=== PATIENT | female | born 1990 | race Caucasian/White ===

== ENCOUNTER → 2017-05-09 12:35 | Outpatient (CLI) | payer MEDICAID, SELFPAY ==
[2017-05-09 12:59] LABS: Basophils % 0.3 % (0.1-2.0); Eosinophils # 0.2 K/mm3 (0.0-0.4); Eosinophils % 2.3 % (0.1-12.0); Hematocrit 47.5 % (37.0-47.0); Hemoglobin 15.8 g/dL (12.2-16.2); Lymphocytes # 2.8 K/mm3 (0.7-4.5); Mean Corpuscular HGB Conc 33.3 g/dL (31.8-35.4); Mean Corpuscular Volume 90.1 fl (81-99); Mean Platelet Volume 6.9 fl (7.4-10.4); Monocytes # 0.4 K/mm3 (0.1-1.0); Monocytes % 3.8 % (1.7-9.3); Neutrophils # 6.5 K/mm3 (1.8-7.8); Neutrophils % 65.6 % (37.0-80.0); Platelet Count 416 K/mm3 (142-424); Red Blood Count 5.27 M/mm3 (4.20-5.40); Red Cell Distribution Width 12.3 % (11.5-17.5); White Blood Count 9.9 K/mm3 (4.8-10.8)
[2017-05-09 13:12] LABS: Alanine Aminotransferase 35 U/L (12-78); Albumin Level 4.2 gm/dL (3.4-5.0); Albumin/Globulin Ratio 1.2 (1.1-1.8); Alkaline Phosphatase 108 U/L (46-116); Amylase 38 U/L (25-125); Aspartate Amino Transferase 14 U/L (15-37); Bilirubin,Total 0.3 mg/dL (0.2-1.0); Blood Urea Nitrogen 9 mg/dL (7-18); Carbon Dioxide 24 mmol/L (21.0-32.0); Chloride 106 mmol/L (98-107); Creatinine,Serum 0.74 mg/dL (0.55-1.02); Estimated Glomerular Filt Rate 96 ml/min (>60); GFR (African American) 116 ML/MIN (>60); Globulin 3.4 gm/dl (1.3-3.2); Glucose 90 mg/dL (74-106); Lipase 128 u/L (73-393); Sodium 141 mmol/L (136-145); Total Protein,Serum 7.6 gm/dL (6.4-8.2)
== END ==
PROVIDERS: Visit Provider Internal Medicine Adolescent Medicine
DX: R10.11 Right upper quadrant pain (principal)
CPT/HCPCS: 36415; 80053; 82150; 83690; 85025

== ENCOUNTER → 2017-05-14 08:52 | Outpatient (CLI) | payer MEDICAID, SELFPAY ==
--- NOTE | 2017-05-14 08:56 | US_ITS ---
US abdomen limited: HISTORY: Right upper quadrant pain with nausea vomiting and diarrhea ITS.REASON: RUQ PAIN ORDERING PHYSICIAN: Kevin Fregoso MD PATIENT AGE: 27 years COMPARISON: None FINDINGS: PANCREAS: Unremarkable. No obvious mass or abnormal fluid collection. No ductal dilatation LIVER: No focal liver lesions demonstrated. Homogeneous echogenicity. No intrahepatic biliary ductal dilatation evident RIGHT KIDNEY: Unremarkable. Normal size and echogenicity. No hydronephrosis GALLBLADDER: No gallstones, gallbladder wall thickening, pericholecystic fluid, or biliary dilatation. There is a minimal amount of gallbladder sludge. IMPRESSION: Minimal gallbladder sludge otherwise negative right upper quadrant ultrasound
== END ==
PROVIDERS: Family Provider Internal Medicine Adolescent Medicine; PCP Internal Medicine Adolescent Medicine; Visit Provider Internal Medicine Adolescent Medicine
DX: R10.11 Right upper quadrant pain (principal)
CPT/HCPCS: 76705

== ENCOUNTER → 2017-05-18 10:14 | Outpatient (CLI) | payer MEDICAID, SELFPAY ==
--- NOTE | 2017-05-18 10:17 | NM_ITS ---
NM hepatobiliary w pharm HISTORY: Right upper quadrant pain ITS.REASON: SLUDGE IN GALLBLADDER ORDERING PHYSICIAN: Kevin Fregoso MD PATIENT AGE: 27 years COMPARISON: None DOSE: 8.38 MCI TC Choletec Fatty meal Ensure FINDINGS: Homogeneous activity is present within the hepatic parenchyma. Activity is present in the gallbladder by 10 minutes. Activity is present in the small bowel by 30 minutes. The gallbladder ejection fraction is calculated to be 58% The patient did report pain with the fatty meal. IMPRESSION: Unremarkable hepatobiliary scan and gallbladder ejection fraction. No evidence of common or cystic duct obstruction with normal gallbladder ejection fraction
== END ==
PROVIDERS: Family Provider Internal Medicine Adolescent Medicine; PCP Internal Medicine Adolescent Medicine; Visit Provider Internal Medicine Adolescent Medicine
DX: K82.8 Other specified diseases of gallbladder (principal)
CPT/HCPCS: 78227; A9537

== ENCOUNTER → 2017-06-01 08:58 | Outpatient (CLI) | payer MEDICAID, SELFPAY ==
--- NOTE | 2017-06-01 09:03 | FL_ITS ---
FL barium swallow COMPARISON: None HISTORY: Sensation of something sticking in throat in the cervical region TECHNIQUE: Fluoroscopy while swallowing barium FINDINGS: The swallowing function is normal. Spot films of the cervical esophagus show no abnormality. There is no degenerative change of the cervical spine. There Is normal esophageal motility. There is a small sliding hiatal hernia without gastroesophageal reflux noted. IMPRESSION: Small sliding hiatal hernia otherwise normal study, the fluoroscopic time is 1 minute 35 seconds
== END ==
PROVIDERS: Family Provider Internal Medicine Adolescent Medicine; PCP Internal Medicine Adolescent Medicine; Visit Provider Surgery
DX: R13.10 Dysphagia, unspecified (principal)
CPT/HCPCS: 74220

== ENCOUNTER → 2017-06-13 10:25 | Outpatient (CLI) | payer MEDICAID, SELFPAY ==
[2017-06-13 11:05] LABS: Basophils # 0.1 K/mm3 (0-0.2); Basophils % 0.6 % (0.1-2.0); Eosinophils # 0.2 K/mm3 (0.0-0.4); Eosinophils % 2.8 % (0.1-12.0); Hematocrit 47.9 % (37.0-47.0); Hemoglobin 16.1 g/dL (12.2-16.2); Lymphocytes # 2.1 K/mm3 (0.7-4.5); Lymphocytes % 24.6 K/mm3 (10-50); Mean Corpuscular HGB Conc 33.6 g/dL (31.8-35.4); Mean Corpuscular Hemoglobin 30.3 pg (27.0-31.2); Mean Corpuscular Volume 90.3 fl (81-99); Mean Platelet Volume 8.1 fl (7.4-10.4); Monocytes # 0.4 K/mm3 (0.1-1.0); Monocytes % 4.9 % (1.7-9.3); Neutrophils # 5.7 K/mm3 (1.8-7.8); Platelet Count 385 K/mm3 (142-424); Red Cell Distribution Width 12.5 % (11.5-17.5); White Blood Count 8.5 K/mm3 (4.8-10.8)
[2017-06-13 11:06] LABS: Urine Pregnancy, HCG Qual. Negative (Negative)
[2017-06-13 12:12] LABS: Alanine Aminotransferase 47 U/L (12-78); Albumin Level 4.2 gm/dL (3.4-5.0); Albumin/Globulin Ratio 1.4 (1.1-1.8); Alkaline Phosphatase 115 U/L (46-116); Anion Gap 17.4 mEq/L (5-15); Aspartate Amino Transferase 23 U/L (15-37); Bilirubin,Total 0.7 mg/dL (0.2-1.0); Blood Urea Nitrogen 12 mg/dL (7-18); Calcium 9.7 mg/dL (8.5-10.1); Carbon Dioxide 25 mmol/L (21.0-32.0); Chloride 105 mmol/L (98-107); Creatinine,Serum 0.77 mg/dL (0.55-1.02); Estimated Glomerular Filt Rate 91 ml/min (>60); GFR (African American) 111 ML/MIN (>60); Globulin 3.1 gm/dl (1.3-3.2); Glucose 87 mg/dL (74-106); Potassium 4.4 mmoL/L (3.5-5.1); Sodium 143 mmol/L (136-145); Total Protein,Serum 7.3 gm/dL (6.4-8.2)
== END ==
PROVIDERS: Visit Provider Surgery
DX: Z01.818 Encounter for other preprocedural examination (principal); K82.8 Other specified diseases of gallbladder; R13.14 Dysphagia, pharyngoesophageal phase
CPT/HCPCS: 36415; 80053; 81025; 85025

== ENCOUNTER 2017-11-15 16:00 | Outpatient (RCR) | payer MEDICAID, SELFPAY ==
--- NOTE | 2017-10-24 14:00 | HMH.PTOPEV ---
PT Outpatient Evaluation Rehab PT Outpatient Evaluation Start: 10/24/17 13:48 Freq: Status: Active Protocol: Document 10/24/17 13:48 MARGOTH (Rec: 10/24/17 14:00 PHORTREY [id number]) Electronically Signed By Stefano Ramos, PT 10/24/17 13:48 Outpatient Therapy Subjective History Subjective History Pt is 27 yof who presents with c/o right mid-back pain x ~ 4 mos with insidious onset of symptoms. She reports sharp, deep pain most of the time and worse with twisting or sleeping. She reports muscle relaxers she was prescribed intially did not help, but after 3-4 days her symptoms eased. However, her symptoms soon returned and meds no longer helped her pain. She has hx of lap CCY perfomed ~ 4 mos ago. Chief Complaint Pain Symptom Type Sharp Symptoms Relieved By Nothing Symptoms Aggravated By Bending/Stooping Twisting Prior Functional Limitations None Current Functional Limitations Driving Sleeping Symptom Description Constant but Variable Level of pain today (0-10) 3 Pain scale - at its worst (0-10) 6 Cervical Eval Palpation Cervical Muscles R Upper Trapezius L Upper Trapezius Cervical/Thoracic Palpation Findings Tenderness Posture Head/C-Spine Posture Sitting Position Neutral Position Head/C-Spine Posture Standing Position Neutral Position Flexibility Deficits Upper Trapezius Muscle Length (R) Mild Tightness (L) Mild Tightness Levaetor Scapulae Muscle Length (R) Mild Tightness (L) Mild Tightness Passive Joint Mobility Cervical PIVM WNL: R OA L OA R AA L AA R C2/3 L C2/3 R C3/4 L C3/4 R C4/5 L C4/5 R C5/6 L C5/6 R C6/7 L C6/7 R C7/T1 L C7/T1 MMT Bilateral
== END 2017-11-15 16:01 | disposition home or self-care (01) ==
LOC: PT 16:00
PROVIDERS: Family Provider Internal Medicine Adolescent Medicine; PCP Internal Medicine Adolescent Medicine; Visit Provider Internal Medicine Adolescent Medicine
DX: M54.6 Pain in thoracic spine (principal)
CPT/HCPCS: 97010; 97014; 97110; 97163; G0283

== ENCOUNTER → 2018-04-04 14:36 | Outpatient (CLI) | payer MEDICAID, SELFPAY ==
[2018-04-04 15:12] LABS: Basophils # 0.1 K/mm3 (0-0.2); Basophils % 1.4 % (0.1-2.0); Eosinophils # 0.2 K/mm3 (0.0-0.4); Eosinophils % 1.8 % (0.1-12.0); Hematocrit 46.2 % (37.0-47.0); Hemoglobin 15.4 g/dL (12.2-16.2); Lymphocytes # 2.7 K/mm3 (0.7-4.5); Lymphocytes % 26.3 % (10-50); Mean Corpuscular HGB Conc 33.3 g/dL (31.8-35.4); Mean Corpuscular Hemoglobin 30.9 pg (27.0-31.2); Mean Corpuscular Volume 92.7 fl (81-99); Mean Platelet Volume 6.9 fl (7.4-10.4); Monocytes # 0.5 K/mm3 (0.1-1.0); Monocytes % 5.3 % (1.7-9.3); Neutrophils # 6.6 K/mm3 (1.8-7.8); Neutrophils % 65.3 % (37.0-80.0); Platelet Count 397 K/mm3 (142-424); Red Blood Count 4.98 M/mm3 (4.20-5.40); Red Cell Distribution Width 13.3 % (11.5-17.5); White Blood Count 10.1 K/mm3 (4.8-10.8)
[2018-04-04 15:52] LABS: HCG Qualitative, Serum Negative (Negative)
== END ==
PROVIDERS: PCP Internal Medicine Adolescent Medicine; Visit Provider Otolaryngology
DX: Z01.818 Encounter for other preprocedural examination (principal); L72.0 Epidermal cyst
CPT/HCPCS: 36415; 84703; 85025

== ENCOUNTER 2019-10-22 11:06 | Emergency (ER) | payer BC, SELFPAY ==
[2019-10-22 11:12] VITALS: BP 133/88; PULSE 85; RESP 17; TEMP 37; O2SAT 97; BMI 32.5
[2019-10-22 11:24] LABS: Microscopic, Urine URINE MICROSCOPIC (MICROSCOPIC)
[2019-10-22 11:35] LABS: Appearance,Urine SL CLOUDY (Clear); Bilirubin,Urine Negative (Negative); Blood, Urine 2+ (Negative); Color,Urine YELLOW (Yellow); Glucose,Urine (UA) Negative (Negative); Ketones,Urine Negative (Negative); Leukocyte Esterase,Urine 1+ (Negative); Nitrate,Urine Negative (Negative); Protein,Urine TRACE (Negative); Specific Gravity, Urine >= 1.030 (1.005-1.030); Urobilinogen,Urine 0.2 EU/dl (0.2)
[2019-10-22 11:38] LABS: Urine Pregnancy, HCG Qual. Negative (Negative)
--- NOTE | 2019-10-22 11:39 | HMH.EDGENADL ---
ED Disposition Clinical Impression: Pyelonephritis Disposition: Home, Self-Care Condition on Discharge: Good Instructions: DI for Kidney Infection Additional Instructions: Take antibiotic as prescribed. Ibuprofen or Tylenol for pain and fever. Zofran as needed for nausea. Additional instructions for URINARY TRACT INFECTION: See your physician in 2-3 days for follow up and culture results. Return immediately if you have an uncontrollable fever greater than 102 degrees, severe back or abdominal pain, inability to urinate, or repetitive vomiting. Prescriptions: Cefdinir [Omnicef 300mg Capsule] 300 mg PO BID #20 cap Transmission Status: Received by [facility] Ondansetron [Zofran 4mg ODT] 4 mg PO TIDP PRN #10 tab.rapdis PRN Reason: Nausea And Vomiting Transmission Status: Received by [facility] Referrals: Kevin Fregoso MD [Primary Care Provider] - - Critical Care Critical Care Time: No Attestation: On 10/22/19, the high probability of a clinically significant, sudden or life threatening deterioration of the following system(s) required my full and direct attention, intervention and personal management. The time I documented below is in addition to time spent performing reported procedures but includes the following listed in this critical care notation. Medical Decision Making - Medical Records Medical records reviewed: Yes: I reviewed the patient's medical records. - Caio Inquiry Pt receiving controlled substance: No Vital Signs: 10/22/19 11:12 10/22/19 12:22 10/22/19 13:08 Temperature 98.6 F Temperature Source Oral Pulse Rate Pulse Rate [Right Radial] 85 72 66 Respiratory Rate 17 Blood Pressure Blood Pressure [Right Arm] 133/88 121/75 115/73 Blood Pressure Mean [Right Arm] 103 90 87 Blood Pressure Source [Right Arm] Automatic Cuff Automatic Cuff Blood Pressure Position [Right Arm] Sitting Sitting 02 Sat by Pulse Oximetry 97 100 99 Oxygen Delivery Method Room Air Room Air 10/22/19 13:20 Temperature 98.9 F Temperature Source Oral Pulse Rate 99 H Pulse Rate [Right Radial] Respiratory Rate 16 Blood Pressure 113/70 Blood Pressure [Right Arm] Blood Pressure Mean [Right Arm] Blood Pressure Source [Right Arm] Blood Pressure Position [Right Arm] 02 Sat by Pulse Oximetry Oxygen Delivery Method Room Air - Lab Data Lab results reviewed: Yes: I reviewed the patient's lab results. Lab Results 10/22/19 11:19: Urine Color Yellow, Urine Appearance Sl cloudy, Urine pH 6.0, Ur Specific [place] >= 1.030, Urine Protein Trace, Urine Glucose (UA) Negative, Urine Ketones Negative, Urine Blood 2+, Urine Nitrate Negative, Urine Bilirubin Negative, Urine Urobilinogen 0.2, Ur Leukocyte Esterase 1+ A, Urine RBC 5-10, Urine WBC 20-50, Ur Squamous Epith Cells 5-10, Ur Transition Epith Cell 3-5, Urine Bacteria 2+ 10/22/19 11:19: Urine HCG, Qual Negative 10/22/19 11:53: WBC 13.0 H, RBC 5.15, Hgb 16.8 H, Hct 48.3 H, MCV 93.8, MCH 32.5 H, MCHC 34.7, RDW 13.1, Plt Count 308, MPV 7.0 L, Neut % (Auto) 74.8, Lymph % (Auto) 19.3, [place] % (Auto) 3.4, Eos % (Auto) 1.8, Baso % (Auto) 0.6, Neut # (Auto) 9.7 H, Lymph # (Auto) 2.5, [place] # (Auto) 0.5, Eos # (Auto) 0.2, Baso # (Auto) 0.1 10/22/19 11:53: Sodium 138, Potassium 3.8, Chloride 104, Carbon Dioxide 21 L, Anion Gap 16.8 H, BUN 14, Creatinine 0.70, Estimated Creat Clear 149, Estimated GFR 100, Est GFR ( Amer) 121, Glucose 90, Calcium 9.6 Result diagrams: 10/22/19 11:53 10/22/19 11:53 Orders (Tests/Meds): ED MEDICATIONS Discontinued Medications Generic Name Dose Route Start Last Admin Trade Name Freq PRN Reason Stop Dose Admin Ceftriaxone Sodium 1 gm/ 50 mls @ 100 mls/hr 10/22/19 12:15 10/22/19 12:15 Sodium Chloride IV 11/05/19 12:14 100 mls/hr Q24H KISHOR Administration Protocol Ketorolac Tromethamine 30 mg 10/22/19 11:50 10/22/19 12:01 Toradol 30mg/Ml Vial IV
--- NOTE | 2019-10-22 11:47 | CT_ITS ---
PROCEDURE: CT ABDOMEN PELVIS WO CON CLINICAL INDICATION: hematuria, flank pain Hematuria and flank pain, right flank pain COMPARISON: CT ABDPELW/O CT ABD PELVIS W/O CONTRAST from 03/29/2012 TECHNIQUE: Axial images obtained with sagittal and coronal reformats. All CT scans at the facility use one or more dose reduction, viz: automated exposure control, ma/kV adjustment per patient size (including targeted exams where dose is matched to indication, i.e. head), or iterative reconstruction technique. FINDINGS: LOWER THORAX: Atelectatic or fibrotic changes are present in the right middle lobe medially and in the left lung base laterally. ABDOMEN & PELVIS: There are post cholecystectomy changes. The liver, spleen, adrenal glands, and pancreas have an unremarkable appearance. There is a 6 mm stone in the lower pole of the right kidney. No ureteral calculi. No hydronephrosis. Small node in the periaortic region.. Unremarkable appearing appendix which is retrocecal. No intestinal obstruction or free air. No obvious pelvic mass or abnormal fluid collection. The right ovary is slightly prominent. No acute bony findings. IMPRESSION: 1. Right nephrolithiasis. No ureteral calculi or hydronephrosis. 2. Unremarkable appendix. Dictated by: Farhat Verma MD 10/22/2019 13:02 Farhat Verma MD in [place] 10/22/2019 13:02
[2019-10-22 12:04] LABS: Bacteria,Urine 2+ /lpf; WBC,Urine 20-50 #/hpf (0-3)
[2019-10-22 12:06] LABS: Basophils # 0.1 K/mm3 (0-0.2); Basophils % 0.6 % (0.1-2.0); Eosinophils # 0.2 K/mm3 (0.0-0.4); Eosinophils % 1.8 % (0.1-12.0); Hematocrit 48.3 % (37.0-47.0); Hemoglobin 16.8 g/dL (12.2-16.2); Lymphocytes # 2.5 K/mm3 (0.7-4.5); Lymphocytes % 19.3 % (10-50); Mean Corpuscular HGB Conc 34.7 g/dL (31.8-35.4); Mean Corpuscular Hemoglobin 32.5 pg (27.0-31.2); Mean Corpuscular Volume 93.8 fl (81-99); Monocytes # 0.5 K/mm3 (0.1-1.0); Monocytes % 3.4 % (1.7-9.3); Neutrophils # 9.7 K/mm3 (1.8-7.8); Neutrophils % 74.8 % (37.0-80.0); Platelet Count 308 K/mm3 (142-424); Red Blood Count 5.15 M/mm3 (4.20-5.40); Red Cell Distribution Width 13.1 % (11.5-17.5)
[2019-10-22 12:15] LABS: Anion Gap 16.8 mEq/L (5-15); Blood Urea Nitrogen 14 mg/dl (7-17); Calcium 9.6 mg/dl (8.4-10.2); Carbon Dioxide 21 mmol/L (22.0-30.0); Chloride 104 mmol/L (98-107); Creatinine Clearance Estimated 149 mL/min (50-200); Estimated Glomerular Filt Rate 100 ml/min (>60); GFR (African American) 121 ML/MIN (>60); Glucose 90 mg/dl (74-100); Potassium 3.8 mmoL/L (3.5-5.1); Sodium 138 mmol/L (136-145)
[2019-10-22 12:22] VITALS: BP 121/75; PULSE 72; O2SAT 100
[2019-10-22 13:08] VITALS: BP 115/73; PULSE 66; O2SAT 99
[2019-10-22 13:20] VITALS: BP 113/70; PULSE 99; RESP 16; TEMP 37.2; O2SAT 99
== END 2019-10-22 13:23 | disposition home or self-care (01) ==
PROVIDERS: Emergency Provider Emergency Medicine; PCP Internal Medicine Adolescent Medicine
DX: N12 Tubulo-interstitial nephritis, not specified as acute or chronic (principal); F41.9 Anxiety disorder, unspecified
CPT/HCPCS: 74176; 80048; 81001; 81025; 85025; 87086; 87088; 87186; 96374; 96375; 99284

== ENCOUNTER 2019-10-27 09:19 | Emergency (ER) | payer BC, SELFPAY ==
[2019-10-27 09:20] VITALS: BP 134/94; PULSE 83; RESP 19; TEMP 37.6; O2SAT 99; BMI 32.5
--- NOTE | 2019-10-27 09:50 | HMH.EDEYEP ---
ED Disposition Clinical Impression: Corneal abrasion Qualifiers: Encounter type: initial encounter Laterality: right Qualified Code(s): S05.01XA - Injury of conjunctiva and corneal abrasion without foreign body, right eye, initial encounter Disposition: Home, Self-Care Condition on Discharge: Fair Instructions: DI for Corneal Abrasion Prescriptions: Erythromycin Base [Erythromycin 1gm opth ointment] 1 applicatio EYE-RIGHT QID 5 Days #1 packet Transmission Status: Pending to [facility] Referrals: Kevin Fregoso MD [Primary Care Provider] - - Critical Care Critical Care Time: No Attestation: On 10/27/19, the high probability of a clinically significant, sudden or life threatening deterioration of the following system(s) required my full and direct attention, intervention and personal management. The time I documented below is in addition to time spent performing reported procedures but includes the following listed in this critical care notation. Medical Decision Making - Medical Records Medical records reviewed: Yes: I reviewed the patient's medical records. - Caio Inquiry Pt receiving controlled substance: No Vital Signs: 10/27/19 09:20 Temperature 99.7 F H Temperature Source Oral Pulse Rate [Left Radial] 83 Respiratory Rate 19 Blood Pressure [Right Arm] 134/94 H Blood Pressure Mean [Right Arm] 107 Blood Pressure Source [Right Arm] Automatic Cuff Blood Pressure Position [Right Arm] Sitting 02 Sat by Pulse Oximetry 99 Oxygen Delivery Method Room Air Orders (Tests/Meds): ED MEDICATIONS Discontinued Medications Generic Name Dose Route Start Last Admin Trade Name Freq PRN Reason Stop Dose Admin Acetaminophen 650 mg 10/27/19 09:34 Acetaminophen 325mg Tab PO 10/27/19 09:35 ONCE ONE Tetracaine HCl 1 ml 10/27/19 09:34 Tetracaine 0.5% Ophth Solution 15ml OP 10/27/19 09:35 ONCE ONE - Reevaluation(s) Time: 09:54 Reevaluation #1: On reevaluation, patient is feeling better. Evidence of corneal abrasion on Del Toro lamp examination. Patient discharged with short course antibiotic. Needs to follow-up with PCP in 24 hours. Given strict return precautions. Verbalized understanding. Medical Decision Narrative: 29-year-old female presenting with right eye pain. The patient has findings consistent with conjunctivitis. I am concerned for corneal abrasion. Del Toro lamp will be performed. Patient's visual acuity is 20/20 bilaterally. Eye Problem HPI - General Chief complaint: Eye Problems Stated complaint: something in right eye Time Seen by Provider: 10/27/19 09:25 Mode of Arrival: Ambulatory Limitations: No Limitations Description of Symptoms (Recalled from ER Triage Doc. by RN): c/o of right eye drainage and eye redness and pain that started yesterday - History of Present Illness HPI Narrative: 29-year-old female presented to the emergency department with right eye pain and drainage. Patient states that it started yesterday while she was cooking dinner. She felt some discomfort in her eye. She has been rubbing it since then. She states that it is very itchy. She is not having any change in her vision, however her eyelids are slightly swollen due to the constant irritation. She has been trying cool compresses without any relief. She denies any direct trauma or injury. Her tetanus immunization is up-to-date. She is not having any headache, focal weakness, fevers or chills. Patient does not wear contacts. - Related Data Previous Rx's Medication Instructions Recorded Cefdinir [Omnicef 300mg Capsule] 300 mg PO BID #20 cap 10/22/19 Ondansetron [Zofran 4mg ODT] 4 mg PO TIDP PRN #10 tab.rapdis 10/22/19 Erythromycin Base [Erythromycin 1 applicatio EYE-RIGHT QID 5 Days 10/27/19 1gm opth ointment] #1 packet Allergies Allergy/AdvReac Type Severity Reaction Status Date / Time No Known Drug Intolerances Allergy Unknown NA Verindra
[2019-10-27 10:01] VITALS: BP 131/78; PULSE 88; RESP 19; TEMP 37; O2SAT 100
== END 2019-10-27 10:05 | disposition home or self-care (01) ==
PROVIDERS: Emergency Provider Emergency Medicine; PCP Internal Medicine Adolescent Medicine
DX: S05.01XA Injury of conjunctiva and corneal abrasion without foreign body, right eye, initial encounter (principal); F17.210 Nicotine dependence, cigarettes, uncomplicated; F41.9 Anxiety disorder, unspecified
CPT/HCPCS: 99281

== ENCOUNTER → 2021-10-19 13:00 | Outpatient (CLI) | payer BC, SELFPAY ==
--- NOTE | 2021-10-19 13:06 | XR_ITS ---
FINAL REPORT CLINICAL HISTORY: CERVICALGIA FINDINGS: CERVICAL SPINE Five views were obtained. There is no acute fracture. There is no malalignment. There is straightening of the normal cervical curvature which could be due to positioning or muscle spasm. The disc spaces are preserved. There is no soft tissue abnormality. IMPRESSION: Straightening of the normal cervical curvature which could be due to positioning or muscle spasm. No acute bony abnormality. Reviewed, Interpreted and Dictated by Eder Church III, MD Transcribed by Samantha Chavez Authenticated and [facility]
== END ==
PROVIDERS: PCP Internal Medicine Adolescent Medicine; Visit Provider Internal Medicine Adolescent Medicine
DX: M54.2 Cervicalgia (principal)
CPT/HCPCS: 72050

== ENCOUNTER 2022-02-14 08:51 | Emergency (ER) | payer BC, SELFPAY ==
[2022-02-14] VITALS (16 sets, daily range): BP systolic 112–164; BP diastolic 67–104; PULSE 62–100; RESP 16–17; TEMP 36.6–36.8; O2SAT 95–100; BMI 34.0
--- NOTE | 2022-02-14 09:11 | PC.NURSE ---
pt ambulatory to restroom without complications
[2022-02-14 09:26] LABS: Microscopic, Urine URINE MICROSCOPIC (MICROSCOPIC)
--- NOTE | 2022-02-14 09:28 | PC.NURSE ---
DR. PEREA AT BEDSIDE
--- NOTE | 2022-02-14 09:30 | CT_ITS ---
FINAL REPORT TECHNIQUE: Axial CT images were performed from the lung bases through the pubic symphysis. Coronal reformats were submitted and reviewed. This study was performed with techniques to keep radiation doses as low as reasonably achievable (ALARA). Individualized dose reduction techniques using automated exposure control or adjustment of mA and/or kV according to the patient's size were employed. CLINICAL HISTORY: R flank pain, h/o kidney stones COMPARISON: October 2019 FINDINGS: Abdomen: There is stable presumed scarring in the right middle lobe. There is evidence of cholecystectomy. The liver, spleen and pancreas are unremarkable. There are no adrenal masses. There are less than 3 mm nonobstructing stones in the right kidney. No left renal stones are seen. There is mild right hydronephrosis secondary to a 7 mm stone at the right UPJ. There is right periureteric stranding/edema. There is a moderate amount of retained stool. Pelvis: The appendix is unremarkable. There are no distal ureteral stones. There is bladder wall thickening with surrounding stranding worrisome for cystitis. There is a 21 mm probable cyst in the left ovary. IMPRESSION: Mild right hydronephrosis with a 7 mm right UPJ stone and periureteric stranding/edema. Bladder wall thickening and surrounding stranding worrisome for cystitis. Nonobstructing right renal stones. Probable left ovarian cyst. Reviewed, Interpreted and Dictated by Eder Church III, MD Transcribed by Sukhjinder Whitaker Authenticated and [facility]
--- NOTE | 2022-02-14 09:32 | HMH.EDGENADL ---
Discharge Plan Disposition Patient Disposition: Xfer Short-Term Hosp Condition: Good Prescriptions Prescriptions: No Action fluticasone propionate [Flonase Allergy Relief] 50 mcg/actuation spray,suspension 2 spray INTRANASAL DAILY Rx Instructions: administer into each nostril Referrals Follow up/Referrals: Kevin Fregoso MD [Primary Care Provider] - See instructions Clinical Impressions Clinical Impression: Right ureteral calculus, Urinary tract infection Stand Alone Forms Stand Alone Forms: Transfer Record - ED Discharge ED Provider: Jonathan Kinney General Adult HPI General Chief complaint: Back Pain/Injury Stated complaint: Possible hives, lower RT back pain Time Seen by Provider: 02/14/22 09:25 Mode of Arrival: Ambulatory Limitations: No Limitations Description of Symptoms (Recalled from ER Triage Doc. by RN): PT REPORTS GENERALIZED HIVES THAT STARTED YESTERDAY, IMPROVED TODAY. NOTED TO RIGHT FOREARM AT THIS TIME. PT REPORTS LOWER BACK/RIGHT FLANK PAIN THAT BEGAN THIS AM. PAINFUL URINATION History of Present Illness HPI narrative: Complains of right flank pain since this morning. No abdominal pain. Nausea but no vomiting. Painful urination, no gross hematuria. Prior history of kidney stones, but is uncertain whether this is similar because last kidney stone was many years ago. Last menses first of this month. Denies . Also complains of hives for the past couple of days, fading today. Has some hives still present on her right forearm. Complains of itching. Took a Claritin with improvement. Related Data Home Medications Medication Instructions Recorded Confirmed fluticasone propionate 50 2 spray intranasal DAILY 04/18/21 04/18/21 mcg/actuation nasal spray,suspension (Flonase Allergy Relief) Allergies Allergy/AdvReac Type Severity Reaction Status Date / Time No Known Allergies Allergy Verified 04/18/21 13:34 [facility] Disclaimer: The information contained in this section may have been updated after the patient was seen, as this information can be updated by other users. Medical History (Updated 02/14/22 @ 13:00 by Jonathan Kinney MD) Depression Surgical History (Updated 02/14/22 @ 09:31 by Sherly Ariza RN) H/O section History of cholecystectomy Hx of tubal ligation Family History (Updated 02/14/22 @ 09:31 by Sherly Ariza RN) Other No significant family history Social History (Updated 02/14/22 @ 09:31 by Sherly Ariza RN) Smoking Status: Current every day smoker tobacco type: cigarettes packs per day: 1 second hand exposure: No alcohol intake: never current occupational status: employed Travel in the last 8 weeks: None household members: spouse housing: house current occupation: [employer] current occupational exposures/hazards: No caffeine: No ROS Obtained: Yes Systems reviewed as appropriate & no additional complaints except as documented Constitutional Constitutional: Denies fever(s) Gastrointestinal Gastrointestingal: Reports nausea; Denies abdominal pain, constipation, diarrhea or vomiting Genitourinary Female Genitourinary: Denies difficulty voiding, Reports dysuria, Reports flank pain and Denies hematuria Allergic/Immunologic Allergic/Immunologic: Reports urticaria Physical Exam General General appearance: alert and in no apparent distress Head Head exam: atraumatic and normocephalic Eye Eye exam: Present normal appearance and EOMI ENT ENT exam: Present mucous membranes moist Neck Neck exam: Present normal inspection and trachea midline Chest Chest inspection: Present normal inspection and symmetric chest wall rise Respiratory Respiratory exam: Present normal lung sounds bilaterally; Absent respiratory distress Cardiovascular Cardiovascular exam: Present regular rate, normal rhythm and normal heart sounds Abdominal Exam Abdominal exam: Present soft, te
[2022-02-14 09:33] LABS: Appearance,Urine SL CLOUDY (Clear); Bilirubin,Urine Negative (Negative); Blood, Urine 3+ (Negative); Color,Urine YELLOW (Yellow); Glucose,Urine (UA) Negative (Negative); Ketones,Urine Negative (Negative); Leukocyte Esterase,Urine 2+ (Negative); Nitrate,Urine POSITIVE (Negative); Protein,Urine 2+ (Negative); Specific Gravity, Urine >= 1.030 (1.005-1.030); Urobilinogen,Urine 0.2 EU/dl (0.2)
[2022-02-14 09:42] LABS: Chloride 108 mmol/L (98-107); Sodium 140 mmol/L (136-145)
[2022-02-14 09:44] LABS: Basophils # 0.1 K/mm3 (0-0.2); Basophils % 0.4 % (0.1-2.0); Eosinophils # 0.1 K/mm3 (0.0-0.4); Eosinophils % 0.9 % (0.1-12.0); Hematocrit 47.6 % (37.0-47.0); Lipase 300 U/L (23-300); Lymphocytes # 1.7 K/mm3 (0.7-4.5); Lymphocytes % 11.3 % (10-50); Mean Corpuscular HGB Conc 33.7 g/dL (31.8-35.4); Mean Corpuscular Hemoglobin 31.1 pg (27.0-31.2); Mean Corpuscular Volume 92.5 fl (81-99); Mean Platelet Volume 7.5 fl (7.4-10.4); Monocytes # 0.5 K/mm3 (0.1-1.0); Monocytes % 3.3 % (1.7-9.3); Neutrophils # 12.3 K/mm3 (1.8-7.8); Neutrophils % 84.1 % (37.0-80.0); Platelet Count 390 K/mm3 (142-424); Red Blood Count 5.15 M/mm3 (4.20-5.40); Red Cell Distribution Width 13.1 % (11.5-17.5); White Blood Count 14.6 K/mm3 (4.8-10.8)
[2022-02-14 09:45] LABS: Alanine Aminotransferase 39 U/L (12-78); Albumin Level 4.4 g/dl (3.5-5.0); Albumin/Globulin Ratio 1.6 (1.1-1.8); Alkaline Phosphatase 91 U/L (38-126); Aspartate Amino Transferase 31 U/L (14-36); Bilirubin,Total 0.8 mg/dl (0.2-1.3); Blood Urea Nitrogen 13 mg/dl (7-17); Calcium 10.2 mg/dl (8.4-10.2); Carbon Dioxide 22 mmol/L (22.0-30.0); Creatinine Clearance Estimated 134 mL/min (50-200); Estimated Glomerular Filt Rate 85 ml/min (>60); GFR (African American) 103 ML/MIN (>60); Globulin 2.7 g/dL (1.3-3.2); Glucose 100 mg/dl (74-100); Total Protein,Serum 7.1 g/dl (6.3-8.2)
[2022-02-14 09:45] LABS: WBC,Urine 20-50 #/hpf (0-3)
[2022-02-14 09:46] LABS: Bacteria,Urine 3+ /lpf; Squamous Epithelial Cell,Urine Occasional #/hpf (0-5)
--- NOTE | 2022-02-14 09:46 | PC.NURSE ---
PT MEDICATED PER [facility], NO NEEDS AT THIS TIME. CALL LIGHT WITHIN REACH
[2022-02-14 09:52] LABS: HCG Qualitative, Serum Negative (Negative)
--- NOTE | 2022-02-14 10:15 | PC.NURSE ---
PT to CT via WC with windshield repair technician
--- NOTE | 2022-02-14 10:15 | PC.NURSE ---
[address] AT THIS TIME
--- NOTE | 2022-02-14 10:20 | PC.NURSE ---
pt ambulatory back from CT with auto emissions technician, no complications
--- NOTE | 2022-02-14 10:25 | PC.NURSE ---
[address]
--- NOTE | 2022-02-14 11:51 | PC.NURSE ---
has been called will give us a call back
--- NOTE | 2022-02-14 12:12 | PC.NURSE ---
PT AMBULATED TO AND FROM BATHROOM WITHOUT DIFFICULTY
--- NOTE | 2022-02-14 12:21 | PC.NURSE ---
on the phone with urology at [facility]
--- NOTE | 2022-02-14 12:38 | PC.NURSE ---
DR. PEREA SPEAKING WITH [facility]
--- NOTE | 2022-02-14 12:38 | PC.NURSE ---
PT AMBULATED TO BR AND BACK WITHOUT DIFFICULTY
--- NOTE | 2022-02-14 12:40 | PC.NURSE ---
Dr. Kinney speaking with [facility] at this time
--- NOTE | 2022-02-14 13:45 | PC.NURSE ---
ROUNDED ON PT, UPDATED ON POC. AWAITING BED AT [facility]. NO NEEDS AT THIS TIME
--- NOTE | 2022-02-14 14:53 | PC.NURSE ---
has been called for an update on patient and bed. Transfer center stated that she was on a list of 10 patient. and was last on list
--- NOTE | 2022-02-14 15:19 | PC.NURSE ---
FAMILY AT BEDSIDE
--- NOTE | 2022-02-14 15:42 | PC.NURSE ---
PT UPDATED ON POC AT THIS TIME
--- NOTE | 2022-02-14 15:45 | PC.NURSE ---
On the phone with for transfer
--- NOTE | 2022-02-14 15:50 | PC.NURSE ---
stated they will wait to receive images before urology calling back
--- NOTE | 2022-02-14 16:19 | PC.NURSE ---
on the phone with urology
[2022-02-14 16:45] LABS: Coronavirus 19, PCR Not Detected (NotDetected); Influenza A, PCR Not Detected (NotDetected); Influenza B, PCR Not Detected (NotDetected)
--- NOTE | 2022-02-14 17:04 | PC.NURSE ---
1700 REPORT GIVEN TO BRAULIO AT [facility]
--- NOTE | 2022-02-14 17:12 | PC.NURSE ---
transfer center was called and informed about patient going to [facility]
--- NOTE | 2022-02-14 17:14 | PC.NURSE ---
[facility] NOTIFIED OF TRANSFER
--- NOTE | 2022-02-14 17:36 | PC.NURSE ---
[facility] called and stated their ETA is 20 minutes
--- NOTE | 2022-02-14 18:17 | PC.NURSE ---
PT MEDICATED PRIOR TO BEING TRANSFERRED
== END 2022-02-14 18:20 | disposition short-term general hospital (02) ==
PROVIDERS: Emergency Provider Emergency Medicine; PCP Internal Medicine Adolescent Medicine
DX: N13.2 Hydronephrosis with renal and ureteral calculous obstruction (principal); L50.9 Urticaria, unspecified; Z20.822 Contact with and (suspected) exposure to COVID-19; F32.A Depression, unspecified; F17.210 Nicotine dependence, cigarettes, uncomplicated; Z79.1 Long term (current) use of non-steroidal anti-inflammatories (NSAID); Z79.51 Long term (current) use of inhaled steroids; Z79.899 Other long term (current) drug therapy
CPT/HCPCS: 74176; 80053; 81001; 83690; 84703; 85025; 87086; 87088; 87186; 96374; 96375; 96376; 99285; C9803; J0696; J2405; U0003; U0005